=== PATIENT | female | born 1980 | race Caucasian/White ===

== ENCOUNTER 2018-03-09 17:05 | Emergency (ER) | payer BC ==
[~2018-03-09] VITALS: Ht 170.2 cm; Wt 76.4 kg
[~2018-03-09 17:05] MED LIST: ATOR-22 PO; BCPILLS PO; LIDO1PAD2 TD; VENL150T33 PO
[2018-03-09 17:19] VITALS: TEMP 37; Ht 170.2 cm; Wt 76.4 kg
[2018-03-09] MEDS ORDERED: IBUPROFEN 200 MG TAB PO STA (17:44)
--- NOTE | 2018-03-09 18:13 | EMERGENCY ROOM VISIT NOTE ---
History First contact with patient: 17:29 Chief Complaint: KNEEPAIN Stated Complaint: R KNEE INJURY History of Present Illness The patient is a 37 year old female who presents to the Emergency Room with complaints of right knee pain since the patient had an accident playing softball 2 days ago. She fell landing directly on the right knee. She is able to walk and bear weight. The pain is worse with any flexion. She has taken Tylenol with minimal relief of her symptoms. She has not injured this knee before. She is experiencing some pain into the right quad and right hip. Review of Systems 6 system review negative. Please see pertinent positives in the history of present illness section. Past Medical/Surgical History Medical Problems: (1) Endometriosis (2) Migraines (3) Vertigo Hyperlipidemia Depression Family History FHx: cancer FHx: diabetes Social History Smoking Status: Never Smoker Alcohol Use: none Drug Use: none Marital Status: single Housing Status: lives with family Occupation Status: employed Current/Historical Medications Scheduled Atorvastatin (Lipitor), 20 MG PO DAILY Control Pills ( Control Pills), 1 TAB PO DAILY Venlafaxine Hcl (Venlafaxine Hcl Er), 150 MG PO DAILY Scheduled PRN Lidocaine (Lidocaine), 1 PATCH TD QD PRN for Pain Physical Exam Vital Signs Date Time Temp Pulse Resp B/P (MAP) Pulse Ox O2 Delivery O2 Flow Rate FiO2 03/09/18 20:11 82 17 130/96 100 03/09/18 17:19 37.0 100 16 116/84 98 Room Air Physical Exam VITALS: Vitals are noted on the nurse's note and reviewed by myself. Vital signs stable. GENERAL: 37-year-old female, in mild discomfort,, in no acute distress, nondiaphoretic, well-developed well-nourished. SKIN: The skin was without rashes, erythema, edema, or bruising. . HEAD: Normocephalic atraumatic. MUSCULOSKELETAL: RIGHT lower extremity: Pain with flexion and extension of the right knee. Patellar tendon intact. Pain over the quadricep tendon noted. Pain also over the medial joint line. No ligamentous instability appreciated. There is pain over the right hip flexor. No pain over the IT band noted. No pain with abduction. Pain with flexion of the right hip. DP pulse +2. Capillary refill in the toes is less than 2 seconds. NEURO: Patient was alert and oriented to person place and time. Normal sensation to touch. No focal neurological deficits. Medical Decision & Procedures ER Provider Diagnostic Interpretation: Right knee x-rays IMPRESSION: No definite fracture. [id number] right knee joint effusion with equivocal lipohemarthrosis which is probably artifactual. However, if persistent right knee pain, a CT could be obtained to exclude an occult fracture. Electronically signed by: Gomez Childs M.D. 03/09/2018 6:50 PM Dictated Date/Time: 03/09/2018 6:46 PM The status of this report is Signed. Draft = Not yet reviewed or approved by Radiologist. Signed = Reviewed and approved by Radiologist. CT of the right lower extremity without contrast IMPRESSION: 1. No acute fracture. 2. Small right knee joint effusion. 3. Small amount of fluid overlying the medial head of the gastrocnemius which is suboptimally assessed by CT but may reflect a muscle strain. 4. Mild lateral patellar tilt. Electronically signed by: Gomez Childs M.D. 03/09/2018 7:43 PM Dictated Date/Time: 03/09/2018 7:35 PM The status of this report is Signed. Draft = Not yet reviewed or approved by Radiologist. Signed = Reviewed and approved by Radiologist. Medications Administered Medications (Trade) Dose Ordered Sig/Percy Route Start Time Stop Time Status Last Admin Dose Admin Ibuprofen (Advil Tab) 800 mg NOW STAT PO 03/09/18 17:44 03/09/18 17:46 DC 03/09/18 17:52 800 MG ED Course The patient was seen and examined She was medicated with ibuprofen 800 mg p.o. Imaging was performed and reviewed Upon reassessment, the patient was resting comfortably. We discussed her results. She voiced understanding, was comfortable being discharged home. Discharge instructions were reviewed, and she was discharged in good condition Medical Decision Differential diagnosis: Knee sprain, ligamentous tear, effusion, fracture, dislocation, hip injury among others were entertained This patient is a 37-year-old female presents to the emergency department with an injury to the right knee. On exam, she was mildly tender over the joint line. She had some mild edema. I cannot elicit any significant abnormalities with the ligaments. Her imaging showed a possible fracture and effusion. CT confirmed no fracture. She likely has a strain. She also has a small effusion. Patient will be treated with a knee immobilizer and crutches. If there is no improvement in 7 days, she will either follow up with her primary care physician or an orthopedic doctor. She was comfortable with this plan. This chart was completed in part utilizing [employer] Speech Voice Recognition software. Attempts were made to minimize the grammatical errors, random word insertions, pronoun errors and incomplete sentences. Any formal questions or concerns about the content, text or information contained within the body of this dictation should be directly addressed to the provider for clarification. Impression Primary Impression: Right knee injury Departure Information Dispostion Home / Self-Care Condition GOOD Referrals David Jackson M.D.(PRABHU) (PCP) Tulio Orta M.D. Patient Instructions [facility] Additional Instructions Please use crutches and knee immobilizer for the next 7 days. If in 7 days, there is no improvement, please either follow-up with your primary care physician or an orthopedic doctor. A number has been provided Ibuprofen 600 mg every 6 hours. Do not exceed 2400 mg in a 24-hour period. Please also rest, ice for 20 minute intervals and elevate the leg as much as possible. No strenuous activity until you are feeling better Do not hesitate to return to the emergency department with any new or concerning symptoms It was a pleasure participating in your care today
--- NOTE | 2018-03-09 18:51 | DIAGNOSTIC IMAGING REPORT ---
R KNEE 3 VIEWS CLINICAL HISTORY: Medial right knee pain. COMPARISON: None FINDINGS: Alignment of the right knee is anatomic. No acute fracture or osseous lesion is noted. A small to moderate right knee joint effusion is noted. Joint spaces are preserved. An equivocal lipohemarthrosis is probably artifactual. IMPRESSION: No definite fracture. [id number] right knee joint effusion with equivocal lipohemarthrosis which is probably artifactual. However, if persistent right knee pain, a CT could be obtained to exclude an occult fracture. Electronically signed by: Gomez Childs M.D. 03/09/2018 6:50 PM Dictated Date/Time: 03/09/2018 6:46 PM
--- NOTE | 2018-03-09 19:44 | DIAGNOSTIC IMAGING REPORT ---
CT OF THE RIGHT KNEE WITHOUT CONTRAST CLINICAL HISTORY: Medial right knee pain following injury. COMPARISON STUDY: Right knee radiographs March 09, 2018. TECHNIQUE: Axial images of the right knee were obtained without IV contrast. Sagittal and coronal reconstructions were viewed. FINDINGS: Mild lateral patellar tilt is noted. Alignment of the right knee is otherwise anatomic. There is a small right knee joint effusion without evidence for a lipohemarthrosis. No acute fracture is identified. There is no suspicious osseous lesion. Joint spaces are preserved. Intrinsic ligaments are suboptimally assessed by CT. There is a small amount of fluid/edema overlying the medial head of the gastrocnemius. This is suboptimally assessed by CT. IMPRESSION: 1. No acute fracture. 2. Small right knee joint effusion. 3. Small amount of fluid overlying the medial head of the gastrocnemius which is suboptimally assessed by CT but may reflect a muscle strain. 4. Mild lateral patellar tilt. Electronically signed by: Gomez Childs M.D. 03/09/2018 7:43 PM Dictated Date/Time: 03/09/2018 7:35 PM
[2018-03-09 20:11] VITALS: BP 130/96; PULSE 82; O2SAT 100
== END 2018-03-09 20:11 | disposition home or self-care (01) ==
LOC: C.EDB 17:06 → C.EDD 20:11
DX: S89.91XA Unspecified injury of right lower leg, initial encounter (principal); W18.30XA Fall on same level, unspecified, initial encounter; Y93.64 Activity, baseball; M25.461 Effusion, right knee; E78.5 Hyperlipidemia, unspecified; F32.9 Major depressive disorder, single episode, unspecified; Z79.899 Other long term (current) drug therapy; Z79.3 Long term (current) use of hormonal contraceptives

== ENCOUNTER 2025-05-01 05:41 | Observation (INO) ==
[2025-05-01 06:11] LABS: Hematocrit (blood only) 41.8 % (37.0-47.0); Hemoglobin 14.3 g/dl (12.0-16.0); Immature Granulocytes # (auto) 0.04 K/uL (0.01-0.20); Immature Granulocytes % (auto) 0.3 %; Mean Corpuscular Hemoglobin 29.7 pg (25.0-34.0); Mean Corpuscular Volume 86.7 fL (80.0-100.0); Platelet Count 302 K/uL (130-400); RDW Standard Deviation 38.5 fL (36.4-46.3); Red Blood Count 4.82 M/uL (4.20-5.40); White Blood Count 13.30 K/ul (4.8-10.8)
--- NOTE | 2025-05-01 06:22 | Emergency Department Note ---
Impression & Plan Acute cholecystitis, Abdominal pain, RUQ, Nausea & vomiting ED Provider Note NAME: KELLY HOUSTON AGE: 44 SEX: F : 1980 ARRIVES VIA: Walk-In INFORMANT: Patient, ED PROVIDER(S): Giovanni Hernandez MD CHIEF COMPLAINT: Chest pain, abdominal pain MEDICAL DECISION MAKING: Patient presents with the above. The patient's chest pain seems to be upper abdominal pain. IV was established and blood work was obtained along with an EKG troponin chest and abdominal x-rays as well as right upper quadrant ultrasound. Patient's blood work does show a white count of 13 with a normal H&H and platelet count. The patient's kidney function is unremarkable. Anion gap of 13. BSG 127 but not likely to be in DKA with normal bicarb. Beta-hCG negative LFTs and lipase are normal. Patient's plain x-rays grossly unremarkable. Patient's report ultrasound does show history of sludge and tiny stones and positive Alonso sign and could represent acute cholecystitis. I did speak with the on-call general surgery service Carol Hilton PA-C with Dr. Howard. They did evaluate the patient and agreed the patient will be taken to the OR to have a cholecystectomy. Patient was ordered 2 g of IV Ancef per the general surgery service. Patient was admitted/taken to the OR. Discussion w/ other healthcare providers: Yudi Hilton PA-C with Dr. Howard Prior /Outside records reviewed: None Differential diagnosis: Cardiac ischemia, aortic dissection, pulmonary embolism, pneumothorax, pneumonia, pericarditis, myocarditis, GERD, cholecystitis, pancreatitis, musculoskeletal, as well as other pathologies were considered. Diagnostics, as interpreted by me: ECG: Sinus, rate of 70, short UT, normal QRS T wave inversion in lead III no obvious ST elevations. Cardiac monitoring: An order was placed for continuous cardiac monitoring. The monitor shows a rate of 72 with sinus rhythm. Patient was placed on pulse oximetry Medical decision rules: none Imaging studies: I informally interpreted the patient's chest and abdominal x-rays does not show evidence of obvious pneumothorax or pneumoperitoneum with formal report to follow. HPI: Patient presents due to concern for chest pain. The patient states the chest pain seems to be more in her upper abdominal pain now. Patient states this began at around midnight. Patient denies any alcohol tobacco or drug use. Patient states the pain has been constant but has gotten progressively worse. Patient feels as though it is localized in the epigastric region at this time. Patient denies any falls or trauma. No history of heart or lung disease. She denies any leg swelling or calf pain no history of DVT or PE. No recent surgeries procedures or hospitalizations no recent prolonged car or plane travel. Patient did not take anything prior to arrival. The patient denies any cough or fever. PAST MEDICAL HISTORY: See Below PAST SURGICAL HISTORY: See Below SOCIAL HISTORY: See Below HOME MEDICATIONS: See Below ALLERGIES: See Below VITALS: See Below PHYSICAL EXAMINATION: GENERAL: Uncomfortable in appearance. EYE EXAM: Normal conjunctiva. PERRL, no anisocoria and EOM's grossly intact w/o pain. OROPHARYNX: Moist mucus membranes, grossly normal dentition. NECK: Trachea midline, no stridor. LUNGS: Clear to auscultation. Normal chest wall mechanics. HEART: NSR, no MRG. ABDOMEN: Abdomen soft, upper abdominal pain most prominent in the epigastrium, right upper quadrant pain, equivocal Alonso's, no masses, no rebound or guarding. BACK: No CVA TTP. SKIN: No rashes and no bruising. UPPER EXTREMITIES: Upper extremities are grossly normal. LOWER EXTREMITIES: Grossly normal, no edema. NEURO EXAM: Awake and alert, follows commands, no obvious facial asymmetry, normal speech, moves all 4 extremities. Past Med/Surg History Problem List Abdominal pain Abrasion of right leg (Acute) H/O laparoscopy (Acute) Vertigo (Chronic) Migraines (Chronic) Vomiting (Acute) Vomiting (Acute) Migraine variant (Acute) Migraine variant (Acute) H. pylori infection (Acute) Abdominal pain (Acute) Chest pain (Acute) Chest pain (Acute) Right knee injury (Acute) Vomiting (Acute) Vomiting (Acute) Social History Smoking Status: Never smoker Preferred Language: Latvian marital status: Single current occupational status: employed Feels Safe at Home: Yes Allergies Allergies Allergy/AdvReac Type Severity Reaction Status Date / Time No Known Allergies Allergy Unverified 01/09/18 12:51 Home Meds Home Medications Medication Instructions Recorded Confirmed norethindrone 1 mg-ethinyl 1 tab PO DAILY 10/19/25 10/19/25 estradiol 35 mcg tablet (Nortrel) venlafaxine 150 mg 150 mg PO DAILY 05/01/25 05/01/25 capsule,extended release 24 hr Results & Data (ED) Vital Signs Vital Signs - 24 hr 05/01/25 05:45 05/01/25 05:55 05/01/25 05:56 Temperature 36.5 C Temperature Source Temporal Artery Scan Pulse Rate 94 H 83 Pulse Rate [Left Finger] Pulse Rate from SpO2 Sensor Respiratory Rate 18 Blood Pressure 152/102 H Blood Pressure [Left Arm] Blood Pressure Mean 118 Blood Pressure Mean [Left Arm] Blood Pressure Position Sitting Pulse Oximetry 96 99 Oxygen Delivery Method Room Air Room Air Sepsis Recent Fever Within 48 Hours No Sepsis New/Unexplained Change in Mental Status N/A Sepsis Action Taken by Nursing No Action Required 05/01/25 05:58 05/01/25 06:18 05/01/25 06:36 Temperature Temperature Source Pulse Rate 88 85 Pulse Rate [Left Finger] Pulse Rate from SpO2 Sensor 88 85 Respiratory Rate 26 H 24 Blood Pressure 135/96 142/70 H Blood Pressure [Left Arm] Blood Pressure Mean 109 113 Blood Pressure Mean [Left Arm] Blood Pressure Position Pulse Oximetry 99 100 Oxygen Delivery Method Room Air Sepsis Recent Fever Within 48 Hours Sepsis New/Unexplained Change in Mental Status Sepsis Action Taken by Nursing 05/01/25 07:29 05/01/25 09:37 Temperature Temperature Source Pulse Rate Pulse Rate [Left Finger] 63 77 Pulse Rate from SpO2 Sensor Respiratory Rate 20 20 Blood Pressure Blood Pressure [Left Arm] 131/85 155/81 H Blood Pressure Mean Blood Pressure Mean [Left Arm] 100 105 Blood Pressure Position Pulse Oximetry 100 100 Oxygen Delivery Method Room Air Sepsis Recent Fever Within 48 Hours Sepsis New/Unexplained Change in Mental Status Sepsis Action Taken by Snf Medications Current Medication List: was personally reviewed by me Laboratory Data Attestation: I reviewed the patient's lab results. 05/01/25 05:59 05/01/25 05:59 Lab Results 05/01/25 Range/Units 05:59 WBC 13.30 H (4.8-10.8) K/ul RBC 4.82 (4.20-5.40) M/uL Hgb 14.3 (12.0-16.0) g/dl Hct 41.8 (37.0-47.0) % MCV 86.7 (80.0-100.0) fL MCH 29.7 (25.0-34.0) pg MCHC 34.2 (32.0-36.0) g/dL RDW Std Deviation 38.5 (36.4-46.3) fL RDW Coeff of Rissa 12.1 (11.5-14.5) % Plt Count 302 (130-400) K/uL MPV 10.1 (9.4-12.4) fL Immature Gran % (Auto) 0.3 % Neut % (Auto) 76.7 % Lymph % (Auto) 14.9 % [place] % (Auto) 7.1 % Eos % (Auto) 0.5 % Baso % (Auto) 0.5 % Neut # (Auto) 10.22 H (1.40-6.50) K/uL Lymph # (Auto) 1.98 (1.20-3.40) K/uL [place] # (Auto) 0.94 H (0.11-0.59) K/uL Eos # (Auto) 0.06 (0.00-0.50) K/uL Baso # (Auto) 0.06 (0.00-0.20) K/uL Immature Gran # (Auto) 0.04 (0.01-0.20) K/uL PT 9.9 (9.0-12.0) Seconds INR 0.9 (0.9-1.1) APTT 25 (21-31) Seconds PTT Ratio 0.9 Sodium 138 (136-145) mmol/L Potassium 3.5 (3.5-5.1) mmol/L Chloride 104 (98-107) mmol/L Carbon Dioxide 21 (21-32) mmol/L Anion Gap 13 H (3-11) BUN 12 (6-23) mg/dl Creatinine 0.91 (0.6-1.2) mg/dl Est Cr Clr Drug Dosing 85.6 ml/min eGFR 80.28 BUN/Creatinine Ratio 13.2 (10-20) Glucose 127 H (70-99(Fasting)) mg/dl Calcium 10.1 (8.6-10.3) mg/dl Total Bilirubin 0.5 (0.2-1.0) mg/dl AST 16 (13-39) U/L ALT 14 (7-52) U/L Alkaline Phosphatase 81 (34-104) U/L Troponin I High Sens 3.0 (0-14) pg/ml Total Protein 7.1 (6.0-8.3) gm/dl Albumin 3.9 (3.4-5.0) gm/dl Globulin 3.2 (2.5-4.0) gm/dl Albumin/Globulin Ratio 1.2 (0.9-2) Lipase 15 (11-82) U/L HCG, Qual Negative (Negative) Administered Medications Discontinued Medications Fentanyl Citrate (Fentanyl Citrate Pf 100 Mcg/2 Ml Vial) 75 mcg IV NOW STA Stop: 05/01/25 08:59 Last Admin: 05/01/25 09:08 Dose: 75 mcg Documented By: MIKKI Sodium Chloride (Nss) 1,000 mls @ 999 mls/hr IV .Q1H1M ONE Stop: 05/01/25 07:11 Last Infusion: 05/01/25 07:19 Dose: Infused Documented By: Admin: 05/01/25 06:31 Dose: 999 mls/hr Documented By: HANNY Sodium Chloride (Nss) 500 mls @ 999 mls/hr IV .Q31M ONE Stop: 05/01/25 08:34 Last Infusion: 05/01/25 08:43 Dose: Infused Documented By: Admin: 05/01/25 08:12 Dose: 999 mls/hr Documented By: TIMA Cefazolin Sodium (Ancef 2000mg) 2,000 mg in 15 mls @ 3.75 mls/min IV NOW STA Stop: 05/01/25 11:08 Last Admin: 05/01/25 11:09 Dose: 3.75 mls/min Documented By: TIMA Ketorolac Tromethamine (Ketorolac Tromethamine 15 Mg/Ml Vial) 10 mg IV NOW ONE Stop: 05/01/25 06:43 Last Admin: 05/01/25 06:44 Dose: 10 mg Documented By: HANNY Metoclopramide HCl (Metoclopramide Hcl Inj 5 Mg/Ml 2 Ml Vial) 10 mg IV NOW STA Stop: 05/01/25 08:59 Last Admin: 05/01/25 09:08 Dose: 10 mg Documented By: MIKKI Morphine Sulfate (Morphine Sulfate 10 Mg/Ml Carp/Vial) 6 mg IV NOW STA Stop: 05/01/25 06:12 Last Admin: 05/01/25 06:28 Dose: 6 mg Documented By: HANNY Morphine Sulfate (Morphine Sulfate 4 Mg/Ml 1 Ml Carp\Vial) 4 mg IV NOW STA Stop: 05/01/25 08:05 Last Admin: 05/01/25 08:11 Dose: 4 mg Documented By: TIMA Ondansetron HCl (Ondansetron Inj 2 Mg/Ml 2 Ml Vial) 4 mg IV NOW STA Stop: 05/01/25 06:12 Last Admin: 05/01/25 06:31 Dose: 4 mg Documented By: HANNY Ondansetron HCl (Ondansetron Inj 2 Mg/Ml 2 Ml Vial) 4 mg IV NOW STA Stop: 05/01/25 08:05 Last Admin: 05/01/25 08:11 Dose: 4 mg Documented By: TIMA Imaging Data Radiologist's Impression: Chest/Abdomen X-ray 05/01/25 06:11 EXAM: XR abdomen 2V w PA chest CLINICAL HISTORY: upper ab/chest pain. TECHNIQUE: An X-ray image of the chest and abdomen was obtained in the supine and upright projection. COMPARISON: Chest X-ray on 01/09/2018. FINDINGS: Pulmonary Parenchyma: The lungs are clear bilaterally. There is no evidence of consolidation, collapse, or focal opacities. No pulmonary nodules are identified. There is no evidence of pleural effusion or pleural thickening. Heart and Mediastinum: The heart size and shape are normal. No mediastinal widening or masses are seen. There is no hilar or mediastinal lymphadenopathy present. Bony Thorax: The bony thorax appears intact without fractures or deformities. Soft Tissues: The soft tissues overlying the chest wall are unremarkable. Gas Pattern: The gas pattern within the abdomen is normal. There is no evidence of bowel obstruction or distention. The large bowel is loaded with fecal matter. Soft Tissues: The soft tissues of the abdomen appear normal, without evidence of masses or calcifications. The liver, spleen, and kidneys are of normal size and position. IMPRESSION: 1. No acute cardiopulmonary abnormalities are identified, unchanged in comparison with 01/09/2018. 2. Normal abdominal X-ray. 3. No acute abnormalities are identified. 4. The large bowel is loaded with fecal matter. Electronically signed by Favio Huynh 05-01-2025 08:42 AM Gallbladder Ultrasound 05/01/25 06:11 EXAM: US gallbladder CLINICAL HISTORY: Epigastric/RUQ pain. TECHNIQUE: A limited ultrasound of the liver and gallbladder was performed in grayscale and Doppler. Multiple images were obtained in transverse and longitudinal planes. COMPARISON: No prior studies are available for comparison. FINDINGS: Liver: The liver appears enlarged, measuring up to 18.9 cm, and demonstrates moderately increased parenchymal echogenicity, consistent with moderate fatty changes in the liver. No evidence of any focal lesion is detected in the liver in the provided images. The visualized portal vein demonstrates intact vascular flow on color Doppler scan. Gallbladder: The gallbladder appears optimally distended and demonstrates numerous echogenic non-shadowing foci of variable sizes within its lumen, intermixed with sludge. A few of these echogenic foci seen along the wall demonstrate reverberating artifacts. Tiny, bright echogenic foci are also seen around the periphery, possibly representing small stones. There is focal wall thickening detected along the anterior wall of the gallbladder in one of the images. The wall thickness, as measured by the technologist, appears within normal limits and measures up to 2.7 mm, with no definite evidence of pericholecystic fluid detected in these limited images. Positive Alonso's sign. Biliary Tree: The visualized common bile duct is within normal limits and measures up to 4.1 mm. Right kidney: The visualized right kidney measures up to 11.1 cm and demonstrates normal vascular flow with no hydronephrosis. The pancreas is reported to be within normal limits as per the technologist. IMPRESSION: 1. Imaging appearances raise the possibility of gallbladder cholesterolosis and a mixture of sludge and tiny stones. The presence of a positive Alonso's sign could represent acute cholecystitis; clinical correlation is advised. 2. Hepatomegaly with moderate steatosis. Electronically signed by Favio Huynh 05-01-2025 09:23 AM Discharge Plan Visit Data Chief Complaint: Chest Pain Stated Complaint: CHEST PAIN, SOB ED Provider: Giovanni Hernandez Discharge Problem: Acute cholecystitis, Abdominal pain, RUQ, Nausea & vomiting Patient Disposition: Admitted As Inpatient Condition: Good Forms Stand Alone Forms: [facility] [email or web address] Prescriptions Prescriptions: No Action venlafaxine 150 mg capsule,extended release 24hr 150 mg PO DAILY Nortrel 1 (28) 1-35 mg-mcg tablet 1 tab PO DAILY Referrals Referrals: Michele Ogden MD [Primary Care Provider] - Discharge Problem: Nausea & vomiting Qualifiers: Vomiting type: unspecified Qualified Code(s): R11.2 - Nausea with vomiting, unspecified
[2025-05-01 06:26] LABS: Alanine Aminotransferase 14.0 U/L (7-52); Albumin Globulin Ratio 1.2 (0.9-2); Albumin Level 3.9 gm/dl (3.4-5.0); Alkaline Phosphatase 81.0 U/L (34-104); Anion Gap 13.0 (3-11); Bilirubin,Total 0.5 mg/dl (0.2-1.0); Blood Urea Nitrogen 12.0 mg/dl (6-23); Calcium 10.1 mg/dl (8.6-10.3); Carbon Dioxide 21.0 mmol/L (21-32); Chloride 104.0 mmol/L (98-107); Creatinine Clr Calc Pharmacy 85.6 ml/min; Globulin 3.2 gm/dl (2.5-4.0); Glucose 127.0 mg/dl (70-99(Fasting)); Lipase 15.0 U/L (11-82); Potassium 3.5 mmol/L (3.5-5.1); Sodium 138.0 mmol/L (136-145); Total Protein 7.1 gm/dl (6.0-8.3)
[2025-05-01] MEDS: MoRPHine SULFATE 10 MG/ML CARP/VIAL IV STA (06:28)
[2025-05-01] MEDS: ONDANSETRON INJ 2 MG/ML 2 ML VIAL IV STA ×2 (06:31→08:11)
[2025-05-01] MEDS: SODIUM CHLORIDE 0.9% 1,000 ML IV ONE (06:31)
[2025-05-01] MEDS: KETOROLAC TROMETHAMINE 15 MG/ML VIAL IV ONE (06:44)
[2025-05-01 06:45] LABS: Pregnancy Test, Serum Negative (Negative)
[2025-05-01 06:47] LABS: INR 0.9 (0.9-1.1); Partial Thromboplastin Time 25 Seconds (21-31); Prothrombin Time 9.9 Seconds (9.0-12.0)
[2025-05-01] MEDS: MoRPHine SULFATE 4 MG/ML 1 ML CARP\\VIAL IV STA (08:11)
[2025-05-01] MEDS: SODIUM CHLORIDE 0.9% 500 ML IV ONE (08:12)
--- NOTE | 2025-05-01 08:45 | XRay Report ---
EXAM: XR abdomen 2V w PA chest CLINICAL HISTORY: upper ab/chest pain. TECHNIQUE: An X-ray image of the chest and abdomen was obtained in the supine and upright projection. COMPARISON: Chest X-ray on 01/09/2018. FINDINGS: Pulmonary Parenchyma: The lungs are clear bilaterally. There is no evidence of consolidation, collapse, or focal opacities. No pulmonary nodules are identified. There is no evidence of pleural effusion or pleural thickening. Heart and Mediastinum: The heart size and shape are normal. No mediastinal widening or masses are seen. There is no hilar or mediastinal lymphadenopathy present. Bony Thorax: The bony thorax appears intact without fractures or deformities. Soft Tissues: The soft tissues overlying the chest wall are unremarkable. Gas Pattern: The gas pattern within the abdomen is normal. There is no evidence of bowel obstruction or distention. The large bowel is loaded with fecal matter. Soft Tissues: The soft tissues of the abdomen appear normal, without evidence of masses or calcifications. The liver, spleen, and kidneys are of normal size and position. IMPRESSION: 1. No acute cardiopulmonary abnormalities are identified, unchanged in comparison with 01/09/2018. 2. Normal abdominal X-ray. 3. No acute abnormalities are identified. 4. The large bowel is loaded with fecal matter. Electronically signed by Favio Huynh 05-01-2025 08:42 AM
[2025-05-01] MEDS: METOCLOPRAMIDE HCL INJ 5 MG/ML 2 ML VIAL IV STA (09:08)
--- NOTE | 2025-05-01 09:23 | Ultrasound Report ---
EXAM: US gallbladder CLINICAL HISTORY: Epigastric/RUQ pain. TECHNIQUE: A limited ultrasound of the liver and gallbladder was performed in grayscale and Doppler. Multiple images were obtained in transverse and longitudinal planes. COMPARISON: No prior studies are available for comparison. FINDINGS: Liver: The liver appears enlarged, measuring up to 18.9 cm, and demonstrates moderately increased parenchymal echogenicity, consistent with moderate fatty changes in the liver. No evidence of any focal lesion is detected in the liver in the provided images. The visualized portal vein demonstrates intact vascular flow on color Doppler scan. Gallbladder: The gallbladder appears optimally distended and demonstrates numerous echogenic non-shadowing foci of variable sizes within its lumen, intermixed with sludge. A few of these echogenic foci seen along the wall demonstrate reverberating artifacts. Tiny, bright echogenic foci are also seen around the periphery, possibly representing small stones. There is focal wall thickening detected along the anterior wall of the gallbladder in one of the images. The wall thickness, as measured by the technologist, appears within normal limits and measures up to 2.7 mm, with no definite evidence of pericholecystic fluid detected in these limited images. Positive Alonso's sign. Biliary Tree: The visualized common bile duct is within normal limits and measures up to 4.1 mm. Right kidney: The visualized right kidney measures up to 11.1 cm and demonstrates normal vascular flow with no hydronephrosis. The pancreas is reported to be within normal limits as per the technologist. IMPRESSION: 1. Imaging appearances raise the possibility of gallbladder cholesterolosis and a mixture of sludge and tiny stones. The presence of a positive Alonso's sign could represent acute cholecystitis; clinical correlation is advised. 2. Hepatomegaly with moderate steatosis. Electronically signed by Favio Huynh 05-01-2025 09:23 AM
--- NOTE | 2025-05-01 11:11 | Surgery Consultation ---
Date of Consultation May 01, 2025 Assessment & Plan (1) Abdominal pain: 44-year-old overall healthy female with right upper quadrant abdominal pain that began shortly after fatty meal. Slight elevation in WBC. She is tender with palpation. GB ultrasound does show mix of sludge and tiny stones. This most likely represents acute cholecystitis. Will plan for Laparoscopic Cholecystectomy, Possible Open with Dr. Howard later today in the OR. Consent will be obtained by Dr. Howard. Patient will be admitted for overnight observation. Supervising Physician Co-Signing Physician Notes Patient seen and examined, labs and imaging reviewed, agree with above. 44-year-old female presented to the emergency department with epigastric pain that began last night. She had [place] fried foods for dinner. Pain has been epigastric, severe cramping in nature. No episodes in the past. No allergies, otherwise healthy, prior laparoscopy for endometriosis. On exam she is afebrile with stable vitals. She is tender to palpation in the right upper quadrant. No guarding or rebound. Negative Alonso sign. WBC 13, LFTs normal. CT and ultrasound personally viewed and interpreted and agree with the assessment of possible sludge and cholelithiasis with no significant gallbladder wall thickening or Timur cholecystic fluid. Per report the sonographic Alonso sign was positive. Cholelithiasis with acute cholecystitis Plan for laparoscopic cholecystectomy Risk of the procedure were discussed to include but not limited to bleeding, infection, retained stone, bile leak, conversion open, damage surrounding structures, need for future more extensive surgery, failure to treat symptoms, and the risk of anesthesia Potential discharge this afternoon or tomorrow Wound care instructions and activity restrictions reviewed APAP and NSAIDs as needed pain, oxycodone Rx for breakthrough pain Follow-up in general surgery clinic in 2 weeks Return precautions given, call with questions or concerns History of Present Illness Reason for Consultation: right upper quadrant abdominal pain History of Present Illness Sayra is being evaluated for right upper quadrant abdominal pain that she reports began around midnight last night. She reports that the pain started a few hours after eating a hoagie and some fried appetizers. She reports that she has never had this kind of pain before. She was concerned that she was having a heart attack as the pain was initially substernal. She reports an episode of vomiting prior to presenting to the ED. She continues to have pain that is only minimally helped with pain medication and she continues to have nausea. Previous surgery includes laparoscopic surgery for endometriosis. She denies past medical history for any cardiac or pulmonary issues. She is not on any blood thinning medications. ED course: WBC elevated 13.30 LFTs within normal limits Gallbladder ultrasound impression: 1. Imaging appearances raise the possibility of gallbladder cholesterolosis and a mixture of sludge and tiny stones. The presence of a positive Alonso's sign could represent acute cholecystitis; clinical correlation is advised. 2. Hepatomegaly with moderate steatosis. Allergies Allergy/AdvReac Type Severity Reaction Status Date / Time No Known Allergies Allergy Unverified 01/09/18 12:51 Home Medications Medication Instructions Recorded Confirmed Type norethindrone 1 mg-ethinyl 1 tab PO DAILY 05/01/25 05/01/25 History estradiol 35 mcg tablet (Nortrel) venlafaxine 150 mg 150 mg PO DAILY 05/01/25 05/01/25 History capsule,extended release 24 hr Patient History Social History Smoking Status: Never smoker Preferred Language: Hebrew marital status: Single current occupational status: employed Feels Safe at Home: Yes Review of Systems Constitutional: as per Subjective / HPI; no fever and no chills Respiratory: no cough, no chest congestion, no dyspnea, no dyspnea on exertion and no wheezing Cardiovascular: no chest pain at rest, no chest pain with activity, no radiating jaw, neck or arm pain, no dyspnea, no dyspnea at rest, no orthopnea, no palpitations, no lightheadedness and no calf pain Gastrointestinal: + abdominal pain (tender in RUQ), + naus ea and + vomiting Physical Exam Constitutional: WD/WN, vitals as above Neck: normal visual inspection Respiratory: normal respiratory effort; no respiratory distress and no labored breathing Gastrointestinal (Abdomen): Inspection/Auscultation: abdomen not distended Percussion/Palpation: + abdomen tender (right upper quadrant) and + guarding; abdomen not rigid Psychiatric: A+Ox3, euthymic affect Results & Data Vital Signs (Past 12 Hours) Vital Signs Temp Pulse Pulse Resp BP BP Pulse Ox 05/01/25 09:37 77 20 155/81 H 100 05/01/25 07:29 63 20 131/85 100 05/01/25 06:36 85 24 142/70 H 100 05/01/25 06:18 88 26 H 135/96 99 05/01/25 05:58 05/01/25 05:56 83 05/01/25 05:55 99 05/01/25 05:45 36.5 C 94 H 18 152/102 H 96 O2 Del Method 05/01/25 09:37 Room Air 05/01/25 07:29 05/01/25 06:36 05/01/25 06:18 05/01/25 05:58 Room Air 05/01/25 05:56 05/01/25 05:55 Room Air 05/01/25 05:45 Room Air PG Care Time/CCT Total # of Minutes Spent Total Time Spent with Patient: Total time spent is greater than 50% in coordination of care (as documented) at patient's floor/unit and/or counseling patient: Coding Level of Care Code 44012 OFFICE CONSULT LVL Diagnoses Abdominal pain R10.9
[2025-05-01] MEDS ORDERED: PROMETHAZINE 12.5 MG/50.5 ML BAG IV PRN (11:21)
[2025-05-01] MEDS ORDERED: ONDANSETRON INJ 2 MG/ML 2 ML VIAL IV PRN ×2 (11:21→13:02)
[2025-05-01] MEDS ORDERED: MoRPHine SULFATE 4 MG/ML 1 ML CARP\\VIAL IV PRN ×2 (11:24)
[2025-05-01] MEDS ORDERED: PROPOFOL IV EMULSION 10 MG/ML 20 ML VIAL IV ONE ×2 (11:44→13:54)
[2025-05-01] MEDS ORDERED: ONDANSETRON INJ 2 MG/ML 2 ML VIAL ONE (11:44)
[2025-05-01] MEDS ORDERED: DEXAMETHASONE SOD INJ 4 MG/ML VIAL ONE (11:44)
[2025-05-01] MEDS ORDERED: LIDOCAINE 2% 2 ML VIAL/AMP(20MG/ML) INFIL ONE (11:44)
[2025-05-01] MEDS ORDERED: MIDAZOLAM HCL 1 MG/ML 2ML VIAL ONE (12:48)
[2025-05-01] MEDS ORDERED: HYDROmorphone INJ 1 MG/ML SYRINGE IV PRN (13:02)
[2025-05-01] MEDS ORDERED: PROMETHAZINE HCL 6.25 MG in SODIUM CHLORIDE 0.9% 50 ML IV PRN (13:02)
[2025-05-01] MEDS ORDERED: ATROPINE SULFATE 0.1 MG/ML 10ML SYR IV PRN (13:02)
--- NOTE | 2025-05-01 13:02 | Anesthesiology Consultation ---
Date of Service May 01, 2025 Assessment & Plan ASA ASA2 Proposed Anesthesia Anesthesia Type: General Risk / Benefits Reviewed With: PT / POA / Parent / Guardian, Accepts Plan and Informed Consent Obtained History Surgery Operation Date: 05/01/25 12:00 Proposed Procedures p Laparoscopic Cholecystectomy - Abraham Howard DO, FACS Height/Weight Height: 5 ft 7 in Weight: 77.7 kg Allergies Allergy/AdvReac Type Severity Reaction Status Date / Time No Known Allergies Allergy Unverified 01/09/18 12:51 Medications Home Medications Medication Instructions Recorded Confirmed Last Taken norethindrone 1 mg-ethinyl 1 tab PO DAILY 05/01/25 05/01/25 04/30/25 estradiol 35 mcg tablet (Nortrel) venlafaxine 150 mg 150 mg PO DAILY 05/01/25 05/01/25 04/30/25 capsule,extended release 24 hr Exercise / Class Metabolic Activity II 4-5 Yardwork/Stairs/Walk up hill Past Anesthesia History No Hx of Anesthesia Complications and No Family Hx of Anesthesia Complications History of PONV No Hx of PONV and No Hx of Motion Sickness Social History Smoking Status: Never smoker Review of Systems denies fever/cough/ colds/ chest pain/ SOB/ CHADD denies CHADD Physical Exam Vital Signs Last Vital Signs Temp 36.5 C 05/01/25 05:45 Pulse 76 05/01/25 12:00 Resp 20 05/01/25 12:00 BP 117/72 05/01/25 12:00 Pulse Ox 98 05/01/25 12:00 O2 Del Method Room Air 05/01/25 09:37 ENMT Mouth: no TMJ abnormality and no dentition abnormality Thyromental Distance: > or= 3.5 Finger Breadths Mallampati Class: II Neck neck extension not limited Respiratory normal respiratory effort; no respiratory distress Auscultation: lungs clear to auscultation bilaterally Cardiovascular Rate/Rhythm: regular rate and regular rhythm Neurologic moves all extremities Psychiatric Orientation: alert and oriented x 3 Testing Laboratory Results 05/01/25 05:59 05/01/25 05:59 PT 9.9 Seconds (9.0-12.0) 05/01/25 05:59 INR 0.9 (0.9-1.1) 05/01/25 05:59 APTT 25 Seconds (21-31) 05/01/25 05:59
[2025-05-01] MEDS ORDERED: DROPERIDOL 5 MG/2 ML VIAL ONE (13:23)
[2025-05-01] MEDS ORDERED: PHENYLEPHRINE 100MCG/ML 5ML SYR ONE (13:28)
[2025-05-01] MEDS ORDERED: SUGAMMADEX SODIUM 200 MG/2 ML VIAL IV ONE ×2 (13:29→13:55)
[2025-05-01] MEDS ORDERED: KETOROLAC 30 MG/ML VIAL ONE (14:12)
[2025-05-01] MEDS: BUPIVACAINE 0.5 % 5 MG/1 ML MPF 30ML VIAL ONE (14:17)
--- NOTE | 2025-05-01 14:18 | Operative Report ---
PG Post Operative Report Pre & Post Diagnosis Operation Date: 05/01/25 12:00 Pre-Op Diagnosis: Cholelithiasis with acute cholecystitis Post-Op Diagnosis: Cholelithiasis with acute cholecystitis I identified the patient and participated in the time-out.: Yes Procedure Operation Date: 05/01/25 12:00 Actual Procedures p Laparoscopic Cholecystectomy(Not Applicable) - Abraham Howard DO, LADONNA Surgeon Abraham Howard DO, LADONNA [employer] Hilton Estimated Blood Loss 10 Findings Consistent with Post-Op Diagnosis Acute cholecystitis. Critical view of safety obtained, cystic duct and artery doubly clipped and divided. Specimens Gallbladder Anesthesia Type General Complications none Disposition Accompanied Patient To Recovery: No Disposition: Recovery Room Indications 44-year-old female presented with signs and symptoms consistent with acute cholecystitis confirmed, plan for laparoscopic cholecystectomy. The risks of the procedure were discussed, all questions were answered, and the patient agreed to proceed with surgery as planned. Description of Procedure The patient was properly identified, consented, and taken to the operating room where she was placed in the supine position. General endotracheal anesthesia was induced. SCDs and a safety belt were placed. Preoperative antibiotics were administered. The patient's abdomen was prepped and draped in the standard sterile fashion. A surgical timeout was performed and all parties were in agreement that this was the correct patient and procedure to be performed and we continued as planned. An incision was made superior and to the left of the umbilicus overlying the rectus muscle and the Veress needle was inserted. Saline drop test confirmed entry into the peritoneum. The abdomen was insufflated with carbon dioxide which the patient tolerated without incident. The abdomen was then entered using the Optiview technique and a 5 mm trocar. The laparoscope was inserted and no damage from initial trocar or Veress needle placement was noted, no gross abnormalities were noted within the 4 quadrants of the abdomen. An 11 mm port was placed in the subxiphoid position and two 5 mm ports were then placed in the right subcostal position. The patient was placed in reverse Trendelenburg position and rotated towards the left. The gallbladder was acutely inflamed. It was distended and the aspiration needle was used to decompress the gallbladder. The dome of the gallbladder was retracted towards the left upper quadrant and the infundibulum was retracted toward the right lower quadrant revealing Calot's triangle. Peritoneal attachments were taken down with electrocautery and blunt dissection. The cystic duct and artery were circumferentially dissected. A window of safety was obtained showing the cystic duct entering the gallbladder with no aberrant structures noted. The cystic duct and artery were doubly clipped and divided. The gallbladder was then lifted off the gallbladder fossa with electrocautery. The gallbladder was partially intrahepatic. The gallbladder was placed in an Endo Catch bag and removed through the subxiphoid port site. The right upper quadrant was irrigated and hemostasis was found to be good. 5 mm trochars were removed under direct visualization and the abdomen was allowed to collapse. The subxiphoid port site fascia was closed with 0 Vicryl suture utilizing the Dontrell-Glo device prior to removal of the ports. The wound was irrigated, and the skin of all ports was closed with 4-0 Monocryl subcuticular sutures. Dermabond was placed over the wounds. The patient was extubated in the operating room and taken to the PACU where she recovered without apparent incident. All sponge, instrument and needle counts were correct at the conclusion of the procedure. The patient tolerated the procedure well. The physician's agency sales management assistant was present and scrubbed for the entirety of the case and was essential in positioning the patient, prepping and draping, retraction and exposure, driving the laparoscope, removal of the gallbladder, closure the incisions, and placement of the dressings. I attest to the content of the Intraoperative Record and any orders documented therein. Any exceptions are noted below.
--- NOTE | 2025-05-01 15:09 | Anesthesiology Progress Note ---
Date of Service May 01, 2025 Anesthesia Post Procedure Vital Signs Vital Signs: Temp Pulse Pulse Pulse Resp BP BP 05/01/25 15:07 91 H 20 151/92 H 05/01/25 14:55 36.9 C 98 H 14 144/90 H 05/01/25 14:45 99 H 14 149/93 H 05/01/25 14:35 103 H 16 139/93 05/01/25 14:29 36.3 C L 105 H 16 142/81 H 05/01/25 12:00 76 20 117/72 05/01/25 09:37 77 20 155/81 H 05/01/25 07:29 63 20 131/85 05/01/25 06:36 85 24 142/70 H 05/01/25 06:18 88 26 H 135/96 05/01/25 05:58 05/01/25 05:56 83 05/01/25 05:55 05/01/25 05:45 36.5 C 94 H 18 152/102 H Pulse Ox O2 Del Method O2 Flow Rate 05/01/25 15:07 98 Room Air 05/01/25 14:55 100 Room Air 05/01/25 14:45 100 Oxymask 4 05/01/25 14:35 100 Oxymask 6 05/01/25 14:29 100 Oxymask 6 05/01/25 12:00 98 05/01/25 09:37 100 Room Air 05/01/25 07:29 100 05/01/25 06:36 100 05/01/25 06:18 99 05/01/25 05:58 Room Air 05/01/25 05:56 05/01/25 05:55 99 Room Air 05/01/25 05:45 96 Room Air Pain Intensity Chest: Pain Intensity: 10 Transfer of Care Handoff Completed per policy Notes Mental Status: alert / awake / arousable and participated in evaluation Patient Amnestic to Procedure: Yes Nausea / Vomiting: adequately controlled Pain: adequately controlled Airway Patency, RR, SpO2: stable & adequate BP & HR: stable & adequate Hydration State: stable & adequate Anesthetic Complications: no major complications apparent and Pt Satisfied with anesthetic care
[2025-05-01] MEDS: LACTATED RINGER'S 1,000 ML IV SCH (15:41)
--- NOTE | 2025-05-01 19:41 | Electrocardiogram Report ---
Test Reason : Blood Pressure : */* mmHG Vent. Rate : 70 BPM Atrial Rate : 70 BPM P-R Int : 106 ms QRS Dur : 94 ms QT Int : 416 ms P-R-T Axes : -20 146 -12 degrees QTcB Int : 449 ms Sinus rhythm with sinus arrhythmia with short KS Right axis deviation Low voltage QRS Abnormal QRS-T angle, consider primary T wave abnormality Abnormal ECG When compared with ECG of 09-Jan-2018 11:46, QRS axis Shifted right Nonspecific T wave abnormality now evident in Inferior leads Confirmed by Jimy Hinkle ([id number]) on 05/01/2025 7:41:17 PM Referred By: NO PCP Confirmed By: Jimy Hinkle
[2025-05-02 07:15] LABS: Hematocrit (blood only) 37.1 % (37.0-47.0); Hemoglobin 12.8 g/dl (12.0-16.0); Immature Granulocytes # (auto) 0.07 K/uL (0.01-0.20); Immature Granulocytes % (auto) 0.5 %; Mean Corpuscular Hemoglobin 30.5 pg (25.0-34.0); Mean Corpuscular Volume 88.3 fL (80.0-100.0); Platelet Count 232 K/uL (130-400); RDW Standard Deviation 39.7 fL (36.4-46.3); Red Blood Count 4.20 M/uL (4.20-5.40); White Blood Count 15.48 K/ul (4.8-10.8)
[2025-05-02 07:23] VITALS: BP 149/76; PULSE 92; RESP 14; TEMP 98.2; O2SAT 93
[2025-05-02] MEDS: ACETAMINOPHEN 325 MG TAB PO PRN (07:25)
[2025-05-02] MEDS: VENLAFAXINE HCL XR 150 MG CAPXR PO SCH (07:26)
[2025-05-02 07:40] LABS: Alanine Aminotransferase 31.0 U/L (7-52); Albumin Level 3.1 gm/dl (3.4-5.0); Alkaline Phosphatase 73.0 U/L (34-104); Anion Gap 8.0 (3-11); Bilirubin,Total 0.4 mg/dl (0.2-1.0); Blood Urea Nitrogen 7.0 mg/dl (6-23); Calcium 8.3 mg/dl (8.6-10.3); Carbon Dioxide 22.0 mmol/L (21-32); Chloride 109.0 mmol/L (98-107); Creatinine Clr Calc Pharmacy 107.5 ml/min; Glucose 115.0 mg/dl (70-99(Fasting)); Potassium 3.6 mmol/L (3.5-5.1); Sodium 139.0 mmol/L (136-145); Total Protein 5.9 gm/dl (6.0-8.3)
--- NOTE | 2025-05-02 08:17 | Surgery Progress Note ---
Date of Service May 02, 2025 Assessment & Plan (1) S/P laparoscopic cholecystectomy: Plan: POD#[address] merrill wbc 15.4 (likely reactive post op), LFTs within normal limits. hbg 12.8. vitals stable pt feels clinically well, tolerating diet, no n/v. pain controlled incisions c/d/i, abdomen soft, mildly tender she is stable for discharge. d/c instructions reviewed F/u in office in 2 weeks Admission and Anticipated Discharge Date Admission Date: May 01, 2025 Supervising Physician Co-Signing Physician Notes Discussed with ALEXANDRA, labs reviewed, agree with above. POD #1 laparoscopic cholecystectomy for acute calculous cholecystitis. She is feeling much better today, her exam was benign, her WBC was slightly elevated but likely postop. H&H stable. LFTs unremarkable. Discharged to home, follow-up with me in 2 weeks. Wound care instructions and activity restrictions reviewed yesterday. Return precautions given, call with questions or concerns Subjective Patient feels well. Tolerating diet, no n/v. Voiding and passing gas. Pain controlled. She has been ambulating Physical Exam Physical Exam: awake/alert, no distress Respiratory: normal respiratory effort Gastrointestinal (Abdomen): Inspection/Auscultation: + abdominal surgical incision (c/d/i with skin glue); abdomen not distended Percussion/Palpation: + abdomen tender (mild evette incisional discomfort ) and abdomen soft Results & Data Vital Signs (Past 12 Hours) Vital Signs Temp Pulse Resp BP Pulse Ox O2 Del Method 05/02/25 07:20 98.2 F 92 H 14 149/76 H 93 Room Air 05/02/25 03:00 98.6 F 94 H 18 158/89 H 94 Room Air 05/01/25 22:05 98.6 F 96 H 16 144/76 H 96 Room Air PG Care Time/CCT Total # of Minutes Spent Total Time Spent with Patient: Total time spent is greater than 50% in coordination of care (as documented) at patient's floor/unit and/or counseling patient: Coding Level of Care Code 97694 Post Operative Follow-Up Diagnoses S/P laparoscopic cholecystectomy Z90.49
== END 2025-05-02 10:20 | disposition home or self-care (01) ==
LOC: ED 05:41 → 3W 05:41